=== PATIENT | male | born 1965 | race Two or more races ===

== ENCOUNTER 2020-12-02 06:20 | Day surgery (SDC) | payer OTHER ==
[~2020-12-02 06:20] MED LIST: ZOCOR20 MG PO
[2020-12-02] MEDS ORDERED: ULTRAM50 MG PO (11:28)
== END 2020-12-02 14:35 | disposition home or self-care (01) ==
LOC: CIR.AMB 06:20 → EDBD 10:30 → CIR.AMB 14:35
PROVIDERS: ATTEND Surgery
DX: D34 Benign neoplasm of thyroid gland (principal); Z20.822 Contact with and (suspected) exposure to COVID-19